=== PATIENT | female | born 1945 | race Caucasian/White ===

== ENCOUNTER 2023-02-09 07:33 | Outpatient (OUT) | payer MEDICARE, SELFPAY ==
--- NOTE | 2023-02-09 07:45 | NM_ITS ---
Patient: CODY TOBIAS Exam Date: 02/09/2023 : 1945 Gender:F Ordering : DR Christian Barrett . Admission #: [id number] Family : DR. LYNNE ANGELES . Order #: [id number] CLICK HERE TO VIEW EXAM RADIOLOGY REPORT PROCEDURE: NM CHARU PERF SPECT REST STR COMPARISON: None. INDICATIONS: Chest pain, dyspnea on exertion TECHNIQUE: Exam Description: Stress/Rest one day protocol gated SPECT Rest Imagin.7 mCi Tc-99m Cardiolite IV on 02/09/2023 Stress Imaging 31.0 mCi Tc-99m Cardiolite IV on 02/09/2023 Exercise Protocol: Rodney Heart Rate (bpm): Rest: 67 Max: 141 PMHR: 97 Blood Pressure: Rest: 128/62 Max: 152/64 Exercise Time: Minutes: 5 Seconds: 00 Stage Reached: Stage: 2 Mets 7.0 Symptoms: chest tightness, shortness of breath Rest and peak stress ECG findings were abnormal and the exercise portion of the study was abnormal per attending physician Dr. Angeles due toEKG changes. For more details please see separate cardiac stress test report. FINDINGS: QUALITY OF STUDY: Excellent. PERFUSION DEFECT: None. LOCATION: N/A SIZE: N/A. SEVERITY: N/A. TYPE: N/A. WALL MOTION: Normal. LV SIZE: Normal. 51 mL. TID / TCD: None; 0.8 LVEF: Normal. Calculated EF 82%. SUMMARY: Myocardial perfusion imaging study is NORMAL. CONCLUSION: 1. Normal nuclear medicine myocardial perfusion scan. Dictated by: Nash Samayoa M.D. on 02/09/2023 at 15:22 Approved by: Nash Samayoa M.D. on 02/09/2023 at 15:23
--- NOTE | 2023-02-09 12:38 | PM.STRESS ---
Stress Test Stress Test Requesting physician: Christian Barrett Procedure: Exercise Cardiolite stress test General Information: Reason for Stress Test: Chest pain, dyspnea Cardiac History and Risk Factors: Denies any cardiac history. Son had CABG x4. Resting 12 - Lead Electrocardiogram: Rate & rhythm: Normal sinus at a rate of 63. [place]: Normal T-waves: Flattened to very slightly inverted in aVL ST-segments: Normal orientation Stress Test: Protocol: Rodney protocol was followed, with injection of Cardiolite once target heart rate was achieved. Exercise capacity: Fair exercise capacity. Total exercise time of 5minutes reached Rodney stage 2 at 2.5MPH, 12% grade, & 7 METs. Blood pressure: Initial: 128/62, Maximum: 152/64, Recovery: 110/60 Rate & rhythm: Patient remained in sinus rhythm during the exercise and recovery portions of the study.? The maximum heart rate was 141, which was 97% of the maximum predicted heart rate 144. ST-segments & T-waves: Patient developed ST segment depression 1-2 minutes into the recovery phase (greatest at 2mm in V4 & v5) in the inferior and lateral leads. This progressed to ST segment downsloping in the same leads as well as lead I. 12 minutes into recovery, the abnormal EKG changes resolved and was similar to baseline. Patient response/symptoms: At the same time of the abnormal EKG changes, he developed substernal non-radiating chest pressure/heaviness 02/13. This resolved as her EKG changes returned to baseline. Interpretation: This is an abnormal exercise stress test based on inferolateral ST segment downsloping and 2mm depression changes during recovery.? The patient voiced chest heaviness/pressure which coincided with the aforementioned EKG changes. Cardiolite imaging interpretation will be reported separately. Clinical correlation required.?
== END 2023-02-09 07:34 | disposition home or self-care (01) ==
PROVIDERS: PCP Family Medicine; Visit Provider Family Medicine
DX: R07.9 Chest pain, unspecified (principal)
CPT/HCPCS: 78452; 93017; A9500

== ENCOUNTER 2023-02-15 09:59 | Outpatient (OUT) | payer MEDICARE, SELFPAY ==
[2023-02-15 08:15] LABS: Alanine Aminotransferase 19 U/L (14-59); Albumin Globulin Ratio 1.1; Albumin Level 3.5 g/dL (3.4-5.0); Alkaline Phosphatase 101 U/L (46-116); Anion Gap 13.4; Aspartate Amino Transferase 18 U/L (15-37); BUN Creatinine Ratio 17.3; Bilirubin Total 0.5 mg/dL (0.2-1.0); Calcium 8.6 mg/dL (8.5-10.1); Carbon Dioxide 23.7 mmol/L (21.0-32.0); Chloride 107 mmol/L (98-107); Chol HDL Ratio 2.1; Cholesterol 145 mg/dL (<=200); Estimated GFR (African America >60 (>=60); Estimated GFR (Non-African Ame >60 (>=60); Globulin 3.3 g/dL; Glucose 107 mg/dL (74-106); HDL Cholesterol 70 mg/dL (40-60); Potassium 4.1 mmol/L (3.5-5.1); Sodium 140 mmol/L (136-145); Total Protein 6.8 g/dL (6.4-8.2); Triglycerides 55 mg/dL (<=150)
[2023-02-15 08:37] LABS: Basophils Percent Auto 0.6 % (0.2-2.0); Eosinophils Absolute Auto 0.2 10^3/uL (0.0-0.7); Eosinophils Percent Auto 3.1 % (0.9-7.0); Immature Granulocytes Abs Auto 0.01 10^3/uL (0.00-0.03); Immature Granulocytes Pct Auto 0.2 % (0.0-0.5); Lymphocytes Absolute Auto 1.5 10^3/uL (1.2-3.8); Lymphocytes Percent Auto 27.2 % (20.5-60.0); Mean Corpuscular HGB Conc 27.7 g/dL (29.9-35.2); Mean Corpuscular Hemoglobin 18.2 pg (26.7-34.0); Mean Corpuscular Volume 65.8 fL (81.0-99.0); Mean Platelet Volume 9.6 fL (9.5-13.5); Monocytes Absolute Auto 0.4 10^3/uL (0.3-0.8); Monocytes Percent Auto 8.1 % (1.7-12.0); Neutrophils Absolute Auto 3.3 10^3/uL (1.4-6.5); Neutrophils Percent Auto 60.8 % (43.0-75.0); Platelet Count 373 10^3/uL (150-450); Red Blood Count 3.57 10^6/uL (4.20-5.40); White Blood Count 5.4 10^3/uL (4.0-11.0)
[2023-02-15 09:24] LABS: Hematocrit 23.5 % (36.0-48.0); Hemoglobin 6.5 g/dL (12.0-16.0)
== END 2023-02-15 23:59 | disposition home or self-care (01) ==
LOC: LAB 02-16 09:59
PROVIDERS: PCP Family Medicine
DX: R06.09 Other forms of dyspnea (principal); E78.2 Mixed hyperlipidemia
CPT/HCPCS: 36415; 80053; 80061; 83880; 85025

== ENCOUNTER 2024-01-17 10:01 | Outpatient (OUT) | payer MEDICARE, SELFPAY ==
--- NOTE | 2024-01-17 10:12 | MM_ITS ---
Patient Name: CODY TOBIAS MR#: [id number] : 1945 Exam Date: 01/17/2024 Ordering Doctor: DR MELECIO BACA . RADIOLOGY REPORT PROCEDURE: MM TOMOSYNTHESIS SCREENING BI COMPARISON: MG MAMM SCREEN 3D JONATHAN CAD, 12/14/2022. MG MAMM SCREEN 3D JONATHAN CAD, 12/16/2021. INDICATIONS: Screening Calculator Name NCI Breast Cancer Risk Assessment Tool 5 Year Breast Cancer Risk 2.30% Lifetime Breast Cancer Risk 4.50% Personal Breast Cancer No Personal Ovarian Cancer No Treatments None Family Cancers Sister with uterine cancer at age 60. LOCATION: [facility] [place] BREAST COMPOSITION: The breasts are heterogeneously dense,which may obscure small masses. FINDINGS: DIAGNOSTIC CATEGORY 2--BENIGN FINDING. NO CHANGE FROM COMPARISON. Scattered benign-appearing calcifications are present. Scattered benign-appearing lymph nodes are present. RIGHT BREAST: No significant suspicious finding. LEFT BREAST: No significant suspicious finding. RECOMMENDATIONS: ROUTINE MAMMOGRAM AND CLINICAL EVALUATION IN 12 MONTHS. PLEASE NOTE: A NORMAL MAMMOGRAM DOES NOT EXCLUDE THE POSSIBILITY OF BREAST CANCER. A CLINICALLY SUSPICIOUS PALPABLE LUMP SHOULD BE BIOPSIED. Dictated by: Goran Couch MD on 01/17/2024 at 11:24 Approved by: Goran Couch MD on 01/17/2024 at 11:26
== END 2024-01-17 10:02 | disposition home or self-care (01) ==
LOC: MAMMO 10:06
PROVIDERS: PCP Family Medicine; Visit Provider Family Medicine
DX: Z12.31 Encounter for screening mammogram for malignant neoplasm of breast (principal); Z80.8 Family history of malignant neoplasm of other organs or systems
CPT/HCPCS: 77063; 77067

== ENCOUNTER 2025-02-28 08:21 | Outpatient (OUT) | payer MEDICARE, SELFPAY ==
--- OUTSIDE RECORDS SUMMARY | 2025-02-28 08:24 | XMS_ITS | Encounter Summary ---
Author Organization [facility] Address [address] [place] [address] Care Team Providers Care Technical Training Manager Name Role Phone Christian Barrett MD Primary Care Provider [phone] Christian Barrett MD Primary Care Provider [phone] Christian Barrett MD Unavailable Encounter Details Date Type Department Care Team (Late Contact Info) Description 10/10/2023 Orders Only [facility] [address] [place] [address] Christian Barrett MD [address] [place] [address] Social History Tobacco Use Types Packs/Day Years Used Date Smoking Tobacco: Never Smokeless Tobacco: Never Alcohol Use Standard Drinks/Week Comments Never 0 (1 standard drink = 0.6 oz pure alcohol) caffeine intake: 1-2 cups per day Comments Unknown Sex and Gender Information Value Date Recorded Sex Assigned at Not on file Legal Sex Female 7:26 PM EDT Gender Identity Not on file Sexual Orientation Not on file documented as of this encounter Plan of Treatment Upcoming Encounters Date Type Department Care Team (Late Contact Info) Description 02/17/2026 11:00 AM EDT Office Visit [facility] [address] [place] [address] Christian Barrett MD [address] [place] [address] documented as of this encounter Procedures Procedure Name Priority Date/Time Associated Diagnosis Comments SCANNED LABS Routine 10/10/2023 1:48 PM EST SCANNED LABS Routine 10/10/2023 11:30 AM EST SCANNED LABS Routine 10/10/2023 11:15 AM EST documented in this encounter Results * SCANNED LABS (10/10/2023 1:48 PM EST) Christian Barrett MD LAB CHG PERFORMABLES Final Resul t * SCANNED LABS (10/10/2023 11:30 AM EST) Christian Barrett MD LAB CHG PERFORMABLES Final Resul t * SCANNED LABS (10/10/2023 11:15 AM EST) Christian Barrett MD LAB CHG PERFORMABLES Final Resul t documented in this encounter Visit Diagnoses Not on filedocumented in this encounter Care Teams Technical Training Manager Relationship Specialty Start Date End Date Christian Barrett MD PCP - General Family Medicine 02/22/23 11/13/23 Christian Barrett MD [address] [place] [address] PCP - General Family Medicine 11/14/23 Christian Barrett MD [address] [place] [phone] PCP - [facility] 10/06/23 07/06/66 documented as of this encounter
--- OUTSIDE RECORDS SUMMARY | 2025-02-28 08:24 | XMS_ITS | Encounter Summary ---
Author Organization [facility] Address [address] [place] [address] Care Team Providers Care Roving Hauler Name Role Phone Christian Barrett MD Primary Care Provider [phone] Christian Barrett MD Unavailable Encounter Details Date Type Department Care Team (Late Contact Info) Description 01/08/2024 Orders Only [facility] [address] [place] [address] Christian Barrett MD [address] [place] [address] Social History Tobacco Use Types Packs/Day Years Used Date Smoking Tobacco: Never Smokeless Tobacco: Never Alcohol Use Standard Drinks/Week Comments Never 0 (1 standard drink = 0.6 oz pure alcohol) caffeine intake: 1-2 cups per day PHQ-2 Answer Date Recorded Patient Health Questionnaire-2 Score 0 11/14/2023 Comments Unknown Sex and Gender Information Value Date Recorded Sex Assigned at Not on file Legal Sex Female 7:26 PM EDT Gender Identity Not on file Sexual Orientation Not on file documented as of this encounter Plan of Treatment Upcoming Encounters Date Type Department Care Team (Late Contact Info) Description 02/17/2026 11:00 AM EDT Office Visit [facility] [address] [place] [address] Christian Barrett MD [address] [place] [address] documented as of this encounter Procedures Procedure Name Priority Date/Time Associated Diagnosis Comments MISCELLANEOUS LAB TEST Routine 01/08/2024 2:33 PM EDT MISCELLANEOUS LAB TEST Routine 01/08/2024 12:10 PM EDT MISCELLANEOUS LAB TEST Routine 01/08/2024 12:09 PM EDT documented in this encounter Results * - Miscellaneous Test (01/08/2024 2:33 PM EDT) Christian Barrett MD LAB BLOOD ORDERABLES Final Resul t * - Miscellaneous Test (01/08/2024 12:10 PM EDT) Christian Barrett MD LAB BLOOD ORDERABLES Final Resul t * - Miscellaneous Test (01/08/2024 12:09 PM EDT) Christian Barrett MD LAB BLOOD ORDERABLES Final Resul t documented in this encounter Visit Diagnoses Not on filedocumented in this encounter Care Teams Roving Hauler Relationship Specialty Start Date End Date Christian Barrett MD [address] [place] [address] PCP - General Family Medicine 11/14/23 Christian Barrett MD [address] [place] [address] PCP - [facility] 10/06/23 07/06/66 documented as of this encounter
--- OUTSIDE RECORDS SUMMARY | 2025-02-28 08:24 | XMS_ITS | Encounter Summary ---
Author Organization [facility] Address [address] [place] [address] Care Team Providers Care [address] In Teller Name Role Phone Christian Barrett MD Primary Care Provider [phone] Christian Barrett MD Unavailable Encounter Details Date Type Department Care Team (Late Contact Info) Description 05/15/2024 Orders Only [facility] [address] [place] [phone] Christian Barrett MD [address] [place] [address] Social History Tobacco Use Types Packs/Day Years Used Date Smoking Tobacco: Never Smokeless Tobacco: Never Alcohol Use Standard Drinks/Week Comments Never 0 (1 standard drink = 0.6 oz pure alcohol) caffeine intake: 1-2 cups per day PHQ-2 Answer Date Recorded Patient Health Questionnaire-2 Score 1 02/06/2024 Comments Unknown Sex and Gender Information Value Date Recorded Sex Assigned at Not on file Legal Sex Female 7:26 PM EDT Gender Identity Not on file Sexual Orientation Not on file documented as of this encounter Plan of Treatment Upcoming Encounters Date Type Department Care Team (Late Contact Info) Description 02/17/2026 11:00 AM EDT Office Visit [facility] [address] [place] [address] Christian Barrett MD [address] [place] [address] documented as of this encounter Procedures Procedure Name Priority Date/Time Associated Diagnosis Comments MISCELLANEOUS LAB TEST Routine 05/13/2024 10:03 AM EDT documented in this encounter Results * - Miscellaneous Test (05/13/2024 10:03 AM EDT) Christian Barrett MD LAB BLOOD ORDERABLES Final Resul t documented in this encounter Visit Diagnoses Not on filedocumented in this encounter Additional Health Concerns Assessment Noted Time PHQ-9 Depression Total Score: 3 02/06/20 24 11:00 AM EDT documented as of this encounter Care Teams Drive In Teller Relationship Specialty Start Date End Date Christian Barrett MD [address] [place] [address] PCP - General Family Medicine 11/14/23 Christian Barrett MD [address] [place] [address] PCP - [facility] 10/06/23 07/06/66 documented as of this encounter
--- OUTSIDE RECORDS SUMMARY | 2025-02-28 08:24 | XMS_ITS | Encounter Summary ---
Author Organization [facility] Address [address] [place] [address] Phone Care Team Providers Care Monomer Purification Operator Name Role Phone Christian Barrett MD Primary Care Provider + Christian Barrett MD Primary Care Provider + Christian Barrett MD Primary Care Provider + Encounter Details Date Type Department Care Team (Late st Contact Info) Description 02/15/2023 Orders Only [facility] [address] [place] [address] Conversion, Onbase Social History Tobacco Use Types Packs/Day Years Used Date Smoking Tobacco: Never Assessed Comments Unknown Sex and Gender Information Value Date Recorded Sex Assigned at Not on file Legal Sex Female 10:57 AM EDT Gender Identity Not on file Sexual Orientation Not on file documented as of this encounter Plan of Treatment Scheduled Orders Name Type Priority Associated Diagnoses Orde r Schedule OUTSIDE LAB SCAN Lab Ordered: 02/15/2023 documented as of this encounter Visit Diagnoses Not on filedocumented in this encounter Care Teams Monomer Purification Operator Relationship Specialty Start Date End Date Christian Barrett MD PCP - General 02/20/23 Christian Barrett MD PCP - General 02/17/23 02/19/23 Christian Barrett MD PCP - General 02/16/23 02/16/23 documented as of this encounter
--- OUTSIDE RECORDS SUMMARY | 2025-02-28 08:24 | XMS_ITS | Encounter Summary ---
Author Organization [facility] Address [address] [place] [address] Care Team Providers Care Alining Inspector Name Role Phone Christian Barrett MD Primary Care Provider [phone] Christian Barrett MD Primary Care Provider [phone] Christian Barrett MD Unavailable Encounter Details Date Type Department Care Team (Late st Contact Info) Description 02/18/[address] [facility] [address] [address] Lino Prakash MD [address] [address] Social History Tobacco Use Types Packs/Day Years Used Date Smoking Tobacco: Never Assessed Comments Unknown Sex and Gender Information Value Date Recorded Sex Assigned at Not on file Legal Sex Female 7:26 PM EDT Gender Identity Not on file Sexual Orientation Not on file documented as of this encounter Plan of Treatment Upcoming Encounters Date Type Department Care Team (Late st Contact Info) Description 02/17/2026 11:00 AM EDT Office Visit [facility] [address] [place] [address] Christian Barrett MD [address] [place] [address] documented as of this encounter Visit Diagnoses Not on filedocumented in this encounter Care Teams Alining Inspector Relationship Specialty Start Date End Date Christian Barrett MD PCP - General Family Medicine 02/22/23 11/13/23 Christian Barrett MD [address] [place] [address] PCP - [facility] 11/14/23 Christian Barrett MD [address] [place] [address] PCP - [facility] 10/06/23 07/06/66 documented as of this encounter
--- OUTSIDE RECORDS SUMMARY | 2025-02-28 08:24 | XMS_ITS | Clinical Summary ---
Author Organization [facility] Address [id number] [address] [place] [address] Care Team Providers Care Z Os Mainframe Systems Programmer Name Role Phone Christian Barrett MD Primary Care Provider [phone] Allergies No known active allergies Medications atorvastatin (LIPITOR) 40 mg tablet Take 40 mg by mouth daily. Active omeprazole (PriLOSEC) 40 mg capsule Take 40 mg by mouth daily. Active Active Problems No known active problems Social History Tobacco Use Types Packs/Day Years Used Date Smoking Tobacco: Never Smokeless Tobacco: Never Alcohol Use Standard Drinks/Week Comments No 0 (1 standard drink = 0.6 oz pur e alcohol) Childcare Answer Date Recorded Childcare Unknown 01/16/2019 Employment Answer Date Recorded Employment Unknown 01/16/2019 Purpose - Life Answer Date Recorded Purpose and direction in life Unknown Comments No Sex and Gender Information Value Date Recorded Sex Assigned at Not on file Legal Sex Female 11:25 AM EDT Gender Identity Not on file Sexual Orientation Not on file Last Filed Vital Signs Vital Sign Reading Time Taken Comments Blood Pressure 108/69 11/16/2017 10:09 AM EDT Pulse 71 11/16/2017 10:09 AM EDT Temperature 36.5 C (97.7 F) 11/16/2017 8:43 AM EDT Respiratory Rate 2 11/16/2017 9:24 AM EDT Oxygen Saturation 93% 11/16/2017 10:09 AM EDT Inhaled Oxygen Concentration - - Weight 54.9 kg (121 lb) 11/16/2017 8:43 AM EDT Height 157.5 cm (5' 2.01 ) 11/16/2017 8:43 AM ED T Body Mass Index 22.13 11/16/2017 8:43 AM EDT Plan of Treatment Health Maintenance Due Date Last Done Comments Depression Screening 1957 Tobacco Screening 1957 DTaP,Tdap and Td Vaccines (1 - Tdap) 1965 Fall Risk Screening 2011 COVID-19 Vaccine (8 2023-2 5 season) 2024 04/24/2024, 05/02/2023, 05/20/2022, Additional history exists Influenza Vaccine 04/07/2025 04/24/2024, , 04/26/2022, Additional history exists Zoster (Shingles) Vaccine Completed 2020, 02/08/2021, 07/17/2015 Medical Devices Implanted Type Area Hand Roller Engraver Device Identifier Shelf Expiration Date Model / Serial / Lot Clement 4.75 - Sn/A - [id number] Implanted:Qty: 2 on 07/03/2017 by Blair Mustafa DO at [facility] [place] Right: Shoulder Ar[employer]rex 03/06/2019 [id number] / N/A / [id number] [place] [address] [place] [address] [employer] MEDICARE Care Teams Z [employer] Mainframe Systems Programmer Relationship Specialty Start Date End Date Christian Barrett MD PCP - General Family Medicine 06/08/20
--- OUTSIDE RECORDS SUMMARY | 2025-02-28 08:24 | XMS_ITS | Encounter Summary ---
Author Organization [facility] Address [address] [place] [address] Care Team Providers Care Employment Specialist/Program Manager Name Role Phone Christian Barrett MD Primary Care Provider [phone] Christian Barrett MD Primary Care Provider [phone] Christian Barrett MD Unavailable Encounter Details Date Type Department Care Team (Late st Contact Info) Description 03/13/2023 Abstract [facility] [address] [phone] Lion Prakash MD [address] [address] Social History Tobacco Use Types [...] 11:00 AM EDT Office Visit [facility] [address] [place] [address] Christian Barrett MD [address] [place] [phone] documented as of this encounter Visit Diagnoses Not on filedocumented in this encounter Care Teams Employment Specialist/Program Manager Relationship Specialty Start Date End Date Christian Barrett MD PCP - General Family Medicine 02/22/23 11/13/23 Christian Barrett MD [address] [place] [address] PCP - General Family Medicine 11/14/23 Christian Barrett MD [address] [place] [address] PCP - [facility] 10/06/23 07/06/66 documented as of this encounter
--- OUTSIDE RECORDS SUMMARY | 2025-02-28 08:24 | XMS_ITS | Encounter Summary ---
Author Organization [facility] Address [address] [place] [address] Care Team Providers Care Instrumental Teacher Name Role Phone Christian Barrett MD Primary Care Provider [phone] Christian Barrett MD Primary Care Provider [phone] Christian Barrett MD Unavailable Encounter Details Date Type Department Care Team (Late Contact Info) Description 08/01/2023 Orders Only [facility] [address] [place] [address] Christian Barrett MD [address] [place] [address] Social History Tobacco Use Types [...] [facility] [address] [place] [address] Christian Barrett MD [address] [place] [address] documented as of this encounter Procedures Procedure Name Priority Date/Time Associated Diagnosis Comments MISCELLANEOUS LAB TEST Routine 07/11/2023 2:46 PM EST documented in this encounter Results * - Miscellaneous Test (07/11/2023 2:46 PM EST) Christian Barrett MD LAB BLOOD ORDERABLES Final Resul t documented in this encounter Visit Diagnoses Not on filedocumented in this encounter Care Teams Instrumental Teacher Relationship Specialty Start Date End Date Christian Barrett MD PCP - General Family Medicine 02/22/23 11/13/23 Christian Barrett MD [address] [place] [address] PCP - General Family Medicine 11/14/23 Christian Barrett MD [address] [place] [address] PCP - [facility] 10/06/23 07/06/66 documented as of this encounter
--- OUTSIDE RECORDS SUMMARY | 2025-02-28 08:24 | XMS_ITS | Encounter Summary ---
Author Organization [facility] Address [address] [place] [address] Phone Care Team Providers Care Standpipe Tender Name Role Phone Christian Barrett MD Primary Care Provider + Encounter Details Date Type Department Care Team (Late st Contact Info) Description 03/08/2023 Orders Only [facility] [address] [place] [address] Conversion, Onbase Social History Tobacco Use Types [...] r Schedule OUTSIDE LAB SCAN Lab Ordered: 03/08/2023 documented as of this encounter Visit Diagnoses Not on filedocumented in this encounter Care Teams Standpipe Tender Relationship Specialty Start Date End Date Christian Barrett MD PCP - General 02/20/23 documented as of this encounter
--- OUTSIDE RECORDS SUMMARY | 2025-02-28 08:24 | XMS_ITS | Encounter Summary ---
Author Organization [facility] Address [address] [place] [address] Care Team Providers Care Facilities Maintenance Engineer Name Role Phone Christian Barrett MD Primary Care Provider [phone] Christian Barrett MD Primary Care Provider [phone] Christian Barrett MD Unavailable Encounter Details Date Type Department Care Team (Late st Contact Info) Description 03/16/2023 Abstract [facility] [address] [phone] Lion Prakash MD [address] [address] Social History Tobacco Use Types [...] Office Visit [facility] [address] [place] [address] Christian Barrett MD [address] [place] [address] documented as of this encounter Visit Diagnoses Not on filedocumented in this encounter Care Teams Facilities Maintenance Engineer Relationship Specialty Start Date End Date Christian Barrett MD PCP - General Family Medicine 02/22/23 11/13/23 Christian Barrett MD [address] [place] [address] PCP - General Family Medicine 11/14/23 Christian Barrett MD [address] [place] [address] PCP - [facility] 10/06/23 07/06/66 documented as of this encounter
--- OUTSIDE RECORDS SUMMARY | 2025-02-28 08:24 | XMS_ITS | Encounter Summary ---
Author Organization [facility] Address [address] [place] [address] Care Team Providers Care Network Security Officer Name Role Phone Christian Barrett MD Primary Care Provider [phone] Christian Barrett MD Primary Care Provider [phone] Christian Barrett MD Unavailable Encounter Details Date Type Department Care Team (Late st Contact Info) Description 03/20/2023 Abstract [facility] [address] [phone] Lion Prakash MD [address] [address] Social History Tobacco Use Types [...] Office Visit [facility] [address] [place] [address] Christian Barrett MD [address] [place] [address] documented as of this encounter Visit Diagnoses Not on filedocumented in this encounter Care Teams Network Security Officer Relationship Specialty Start Date End Date Christian Barrett MD PCP - General Family Medicine 02/22/23 11/13/23 Christian Barrett MD [address] [address] PCP - General Family Medicine 11/14/23 Christian Barrett MD [address] [address] PCP - [facility] 10/06/23 07/06/66 documented as of this encounter
--- OUTSIDE RECORDS SUMMARY | 2025-02-28 08:24 | XMS_ITS | Clinical Summary ---
Author Organization [facility] Address [address] [place] [address] Care Team Providers Care Reception Clerk Name Role Phone hCristian Barrett MD Primary Care Provider [phone] Christian Barrett MD Unavailable Allergies No known active allergies Medications triamcinolone (Kenalog) 0.5 % creamIndications:D ermatitis Apply topically 3 (three) times a day 60 g 1 02/07/20 24 Active atorvastatin (Lipitor) 40 MG tabletIndications: Hyperlipidemia, unspecified hyperlipidemia type Take 1 tablet (40 mg) by mouth 1 (one) time each day at the same time 100 tablet 3 07/08/20 24 025 Active pantoprazole (ProtoNix) 40 MG EC tabletIndications: Gastro-esophageal reflux disease without esophagitis Take 1 tablet (40 mg) by mouth in the morning. Take before meals. Do not crush, chew, or split. 90 tablet 3 02/11/20 25 Active pantoprazole (ProtoNix) 40 MG EC tablet Every morning 02/13/20 24 025 Discontin ued(Reord er) Active Problems Problem Noted Date Diagnosed Date Prediabetes 08/12/2024 Medicare annual wellness visit, subsequent 02/05 Assessment & Plan (02/10/2025 12:15 PM EDT): Reviewed labs. Discussed proper diet and regular aerobic exercise. Need aerobic exercise 5-6 days a week for 30 minutes at a time. Smaller portions and limit total calories. Tetanus every 10 years. Advised not to smoke. Assessment & Plan (02/06/2024 11:55 AM EDT): Reviewed labs. Discussed proper diet and regular aerobic exercise. Need aerobic exercise 5-6 days a week for 30 minutes at a time. Smaller portions and limit total calories. Tetanus every 10 years. Advised not to smoke. Malignant neoplasm of hepatic flexure 11/14/2023 Assessment & Plan (02/06/2024 11:54 AM EDT): Scheduled for endoscopy and follow with specialists. Carcinoma of transverse colon 11/14/2023 Assessment & Plan (08/08/2024 10:47 AM EST): Follow with oncology. Iron deficiency anemia due to chronic blood loss 11/14/2023 Fatigue 11/14/2023 Anemia 11/14/2023 DULCE (generalized anxiety disorder) 11/14/2023 Assessment & Plan (11/14/2023 2:15 PM EDT): Will trial low dose of vistaril Advised of side effects Fu in 4 weeks Dyslipidemia 07/26/2023 Encounter for long-term (current) use of medicat ions 07/26/2023 Malignant neoplasm of transverse colon Assessment & Plan (02/10/2025 12:16 PM EDT): Follow with specialists. Assessment & Plan (02/06/2024 11:54 AM EDT): Scheduled for endoscopy and follow with specialists. Assessment & Plan (07/26/2023 8:01 AM EST): Feels well and normal BM. Follow up with oncology. Complete tear of right rotator cuff 02/22/2023 Difficulty walking 02/22/2023 Gastro-esophageal reflux disease without esophag itis 02/22/2023 Assessment & Plan (08/08/2024 10:47 AM EST): Symptoms controlled with protonix and continue. Assessment & Plan (07/26/2023 8:00 AM EST): Not on medication and no symptoms. Continue to monitor. Resolved Problems Problem Noted Date Diagnosed Date Resolved Date Mass of colon 11/14/2023 02/06/2024 Iron deficiency 11/14/2023 02/06/2024 GI bleed 11/14/2023 02/06/2024 Dyspnea on exertion 11/14/2023 02/06/20 Rash and nonspecific skin eruption 11/14/2023 08/08/2024 Assessment & Plan (11/14/2023 2:14 PM EDT): Steroids, skin care Low dose of vistaril for this Fu in 3 -4 weeks Abnormal mammogram 02/22/2023 3 Hyperlipidemia 02/22/2023 08/08/2024 Abnormal cardiovascular stress test 02/14/2023 07/26/2023 Encounters Date Type Department Care Team Description 02/19/2025 Telephone [facility] [address] [place] [address] Christian Barrett MD 02/10/2025 11:30 AM EDT Office Visit [facility] [address] [place] [phone] Christian Barrett MD Medicare annual wellness visit, subsequent (Primary Dx); Gastro-esophageal reflux disease without esophagitis; Malignant neoplasm of transverse colon (HCC) 02/10/2025 Bamboo flowsheet [facility] [address] [place] [phone] Christian Barrett MD from Last 3 Months Immunizations Immunization Administration Dates Next Due Influenza, High Dose Seasona l, Preservative Free 05/03/2018,05/10/2017 Influenza, High-dose Seasona l, Quadrivalent, Preservative Free 05/02/2023,05/01/2021,04/09/2020 Influenza, Seasonal, Quadriv alent, Adjuvanted 04/26/2022 Influenza, injectable, MDCK, quadrivalent 2018 Influenza, injectable, quadr ivalent, preservative free 06/15/2016 Influenza, seasonal, injecta ble, preservative free 05/04/2015,05/13/2014 Moderna Bivalent Booster Vaccination 05/20/2022 Pneumococcal Conjugate PCV 13 06/15/2016 Pneumococcal Conjugate PCV 20 05/20/2022 Pneumococcal Polysaccharide PPSV23 05/30/2012 Zoster, Recombinant 04/09/2021,02/08/2021 Zoster, live 07/17/2015 Family History Medical History Relation Name Comments Stroke Mother Relation Name Status Comments Father Mother Other Spouse Alive Son Alive Social History Tobacco Use Types Packs/Day Years Used Date Smoking Tobacco: Never Smokeless Tobacco: Never Alcohol Use Standard Drinks/Week Comments Never 0 (1 standard drink = 0.6 oz pure alcohol) caffeine intake: 1-2 cups per day PHQ-2 Answer Date Recorded Patient Health Questionnaire-2 Score 1 02/10/2025 Comments Unknown Sex and Gender Information Value Date Recorded Sex Assigned at Not on file Legal Sex Female 7:26 PM EDT Gender Identity Not on file Sexual Orientation Not on file Last Filed Vital Signs Vital Sign Reading Time Taken Comments Blood Pressure 114/52 02/10/2025 11:58 AM EDT Pulse 66 02/10/2025 11:58 AM EDT Temperature 36.3 C (97.3 F) 02/10/2025 11:58 AM EDT Respiratory Rate 20 02/10/2025 11:58 AM EDT Oxygen Saturation 97% 02/10/2025 11:58 AM EDT Inhaled Oxygen Concentration - - Weight 47.6 kg (105 lb) 02/10/2025 11:58 AM EDT Height 157.5 cm (5' 2 ) 02/10/2025 11:58 AM EDT Body Mass Index 19.2 02/10/2025 11:58 AM EDT Plan of Treatment Upcoming Encounters Date Type Department Care Team (Late st Contact Info) Description 02/17/2026 11:00 AM EDT Office Visit [facility] [address] [place] [address] Christian Barrett MD [address] [place] [phone] Health Maintenance Due Date Last Done Comments Influenza Vaccine (#1) 2025 4, 05/02/2023, 04/26/2022, Additional history exists Medicare Annual Wellness (AWV) 02/10/2026 02/10/2025 Pneumococcal Vaccine: 65+ Years Completed 05/20/2022, 06/15/2016, 05/30/2012 Insurance [facility] Care Teams Reception Clerk Relationship Specialty Start Date End Date Christian Barrett MD [address] [place] [phone] PCP - General Family Medicine 11/14/23 Christian Barrett MD [address] [place] [address] PCP - [facility] 10/06/23 07/06/66
--- OUTSIDE RECORDS SUMMARY | 2025-02-28 08:24 | XMS_ITS | Clinical Summary ---
Author Organization [facility] Address [address] [place] [address] Phone Care Team Providers Care Lap Cutter Name Role Phone Christian Barrett MD Primary Care Provider + Social History Tobacco Use Types Packs/Day Years Used Date Smoking Tobacco: Never Assessed Comments Unknown Sex and Gender Information Value Date Recorded Sex Assigned at Not on file Legal Sex Female 10:57 AM EDT Gender Identity Not on file Sexual Orientation Not on file Plan of Treatment Health Maintenance Due Date Last Done Comments Bone Density Scan 1945 Lipid Panel 1945 Yearly Adult Physical 1945 Hepatitis C Screening 1964 DTaP/Tdap/Td Vaccines (1 - Tdap) 1968 Pneumococcal Vaccine (1 of 1 - PCV) 1996 Zoster Vaccines (1 of 2) 1996 RSV High Risk: (Elderly (60+ ) or Population) (1 - 1-dose 75+ series) 2021 COVID-19 Vaccine (1 - 2023-2 5 season) 2024 Influenza Vaccine (#1) 2025 HIB Vaccines Aged Out No longer eligi ble based on patient's age to complete this topic HPV Vaccines Aged Out No longer eligi ble based on patient's age to complete this topic Hepatitis A Vaccines Aged Out No long er eligible based on patient's age to complete this topic Hepatitis B Vaccines Aged Out No long er eligible based on patient's age to complete this topic IPV Vaccines Aged Out No longer eligi ble based on patient's age to complete this topic Meningococcal Vaccine Aged Out No cheli sri eligible based on patient's age to complete this topic Rotavirus Vaccines Aged Out No longer eligible based on patient's age to complete this topic Care Teams Lap Cutter Relationship Specialty Start Date End Date Christian Barrett MD PCP - General 02/20/23
--- OUTSIDE RECORDS SUMMARY | 2025-02-28 08:24 | XMS_ITS | Encounter Summary ---
Author Organization [facility] Address [address] [place] [address] Care Team Providers Care Supervisor In Circuit Testing Name Role Phone Christian Barrett MD Primary Care Provider [phone] Christian Barrett MD Unavailable Encounter Details Date Type Department Care Team (Late st Contact Info) Description 02/19/2025 Telephone [facility] [address] [phone] Christian Barrett MD [address] [phone] Social History Tobacco Use Types Packs/Day Years [...] on file documented as of this encounter Miscellaneous Notes * Telephone Encounter - Christian Barrett MD - 02/19/2025 11:41 AM EDT Order in chart, please fax. * Telephone Encounter - Maryjane Trejo - 02/19/2025 8:30 AM EDT Patient called and stated she received a notice from [facility] that it is time for her mammogram. Patientwould like an order sent to [facility]. an documented in this encounter Plan of Treatment Upcoming Encounters Date Type Department Care Team (Late st Contact Info) Description 02/17/2026 11:00 AM EDT [facility] [address] [place] [address] Christian Barrett MD [address] [place] [address] Scheduled Orders Name Type Priority Associated Diagnoses Orde r Schedule Bilateral screening mammogram Imaging Routine Breast cancer screening by mammogram Expected: 02/19/2025, Expires: 04/22/2026 documented as of this encounter Visit Diagnoses Diagnosis Breast cancer screening by mammogram- Primary documented in this encounter Additional Health Concerns Assessment Noted Time PHQ-9 Depression Total Score: 2 02/11/20 25 12:00 PM EDT documented as of this encounter Care Teams Supervisor In Circuit Testing Relationship Specialty Start Date End Date Christian Barrett MD [address] [place] [phone] PCP - General Family Medicine 11/14/23 Christian Barrett MD [address] [place] [phone] PCP - [facility] 10/06/23 07/06/66 documented as of this encounter
--- OUTSIDE RECORDS SUMMARY | 2025-02-28 08:24 | XMS_ITS | Encounter Summary ---
Author Organization [facility] Address [address] [place] [address] Care Team Providers Care Assistant Film Editor Name Role Phone Melecio Baca MD Primary Care Provider [phone] Melecio Baca MD Unavailable Encounter Details Date Type Department Care Team (Late st Contact Info) Description 01/17/2024 Clinisync Result Encounter [facility] External Department Unsolicited Melecio Baca MD [address] [place] [phone] Social History Tobacco Use Types Packs/Day Years [...] 02/17/2026 11:00 AM EDT [facility] [address] [place] [phone] Melecio Baca MD [address] [place] [phone] documented as of this encounter Procedures Procedure Name Priority Date/Time Associated Diagnosis Comments MM TOMOSYNTHESIS SCREENING BI 01/17/2024 11:26 AM EDT documented in this encounter Results * MM TOMOSYNTHESIS SCREENING BI (01/17/2024 11:26 AM EDT) Anatomical Region Laterality Modality Other 01/17/2024 11:2 6 AM EDT Narrative 01/17/2024 11:27 [place] [address] Mammography Report Signed Patient: CODY RICO MR#: [id number] : 1945 Acct:[id number] Age/Sex: 78 / F ADM Date: 01/17/24 Loc: MAMMO Attending Dr: Melecio Baca M.D. Ordering Physician: Melecio Baca M.D. Results: Date of Service: 01/17/24 Follow Up: Procedure(s): MM tomosynthesis screening BI Accession Number(s): [id number] cc: Melecio Baca M.D. Patient Name: CODY RICO MR#: [id number] : 1945 Exam Date: 01/17/2024 Ordering Doctor: DR MELECIO BACA . RADIOLOGY REPORT PROCEDURE: MM TOMOSYNTHESIS SCREENING BI COMPARISON: MG MAMM SCREEN 3D JONATHAN CAD, 12/14/2022. MG MAMM SCREEN 3D JONATHAN CAD, 12/16/2021. INDICATIONS: Screening Calculator Name NCI Breast Cancer Risk Assessment Tool 5 Year Breast Cancer Risk 2.30% Lifetime Breast Cancer Risk 4.50% Personal Breast Cancer No Personal Ovarian Cancer No Treatments None Family Cancers Sister with uterine cancer at age 60. LOCATION: [facility] BREAST COMPOSITION: The breasts are heterogeneously dense,which may obscure small masses. FINDINGS: DIAGNOSTIC CATEGORY 2--BENIGN FINDING. NO CHANGE FROM COMPARISON. Scattered benign-appearing calcifications are present. Scattered benign-appearing lymph nodes are present. RIGHT BREAST: No significant suspicious finding. LEFT BREAST: No significant suspicious finding. RECOMMENDATIONS: ROUTINE MAMMOGRAM AND CLINICAL EVALUATION IN 12 MONTHS. PLEASE NOTE: A NORMAL MAMMOGRAM DOES NOT EXCLUDE THE POSSIBILITY OF BREAST CANCER. A CLINICALLY SUSPICIOUS PALPABLE LUMP SHOULD BE BIOPSIED. Dictated by: Goran Couch MD on 01/17/2024 at 11:24 Approved by: Goran Couch MD on 01/17/2024 at 11:26 Dictated By: Goran Couch M.D. Signed By: 01/17/24 1127 DD/ 1126 TD/TT: Digital Intern: Procedure Note Radiology, Radiologist, MD - 01/17/2024 [place] [address] Mammography Report Signed Patient: CODY RICO LMR#: [id number] : 1945cct:[id number] Age/Sex: 78 / FADM Date: 01/17/24 Loc: MAMMO Attending Dr: Melecio Baca M.D. Ordering Physician: Melecio Baca M.D.Results: Date of Service: 01/17/24Follow Up: Procedure(s): MM tomosynthesis screening BI Accession Number(s): [id number] cc: Melecio Baca M.D. Patient Name: CODY RICO MR#: [id number] : 1945 Exam Date: 01/17/2024 Ordering Doctor: DR MELECIO BACA . RADIOLOGY REPORT PROCEDURE: MM TOMOSYNTHESIS SCREENING BI COMPARISON: MG MAMM SCREEN 3D JONATHAN CAD, 12/14/2022. MG MAMM SCREEN 3DBIL CAD, 12/16/2021. INDICATIONS: Screening Calculator Name NCI Breast Cancer Risk Assessment Tool 5 Year Breast Cancer Risk 2.30% Lifetime Breast Cancer Risk 4.50% Personal Breast Cancer No Personal Ovarian Cancer No Treatments None Family Cancers Sister with uterine cancer at age 60. LOCATION: [facility] BREAST COMPOSITION: The breasts are heterogeneously dense,which may obscure small masses. FINDINGS: DIAGNOSTIC CATEGORY 2--BENIGN FINDING. NO CHANGE FROM COMPARISON. Scattered benign-appearing calcifications are present. Scattered benign-appearing lymph nodes are present. RIGHT BREAST: No significant suspicious finding. LEFT BREAST: No significant suspicious finding. RECOMMENDATIONS: ROUTINE MAMMOGRAM AND CLINICAL EVALUATION IN 12 MONTHS. PLEASE NOTE: A NORMAL MAMMOGRAM DOES NOT EXCLUDE THE POSSIBILITY OFBREAST CANCER. A CLINICALLY SUSPICIOUS PALPABLE LUMP SHOULD BE BIOPSIED. Dictated by: Goran Couch MD on 01/17/2024 at 11:24 Approved by: Goran Couch MD on 01/17/2024 at 11:26 Dictated By: Goran Couch M.D. Signed By:01/17/24 1127 DD/ 1126 TD/TT: Digital Intern: Melecio Baca MD [facility] Final Result documented in this encounter Visit Diagnoses Not on filedocumented in this encounter Care Teams Assistant Film Editor Relationship Specialty Start Date End Date Melecio Baca MD [address] [place] [phone] PCP - General Family Medicine 11/14/23 Melecio Baca MD [address] [place] [phone] PCP - [facility] 10/06/23 07/06/66 documented as of this encounter
--- OUTSIDE RECORDS SUMMARY | 2025-02-28 08:24 | XMS_ITS | Clinical Summary ---
Author Organization [facility] Address [address] [place] [address] Care Team Providers Care Controls Operator Molded Goods Name Role Phone Christian Barrett MD Primary Care Provider [phone] Allergies No known active allergies Medications atorvastatin (Lipitor) 40 mg tablet Take 40 mg by mouth at bedtime. 11/24/2022 Active omeprazole (PriLOSEC) [address] capsule Take 20 mg by mouth in the morning. 11/24/2022 Active metoprolol succinate XL (Toprol-XL) 25 mg 24 hr tabletIndication s:Dyspnea on exertion Take 1 tablet (25 mg) by mouth once daily as directed. Do not crush or chew. 90 tablet 3 02/14/2023 Active Active Problems Problem Noted Date Diagnosed Date Abnormal cardiovascular stress test 02/14/2023 Family History Medical History Relation Name Comments CABG Son Coronary artery disease Son Relation Name Status Comments Son Other Social History Tobacco Use Types Packs/Day Years Used Date Smoking Tobacco: Never Smokeless Tobacco: Never Tobacco Cessation:Counseling Given: Not Answered Alcohol Use Standard Drinks/Week Comments Not Currently 0 (1 standard drink = 0.6 oz pur e alcohol) [place] Safety & Environment Answer Date Rec orded Fear of Current or Ex-Partner Not on file Emotionally Abused Not on file 09/29/2023 Physically Abused Not on file 09/29/2023 Sexually Abused Not on file 09/29/2023 Physically or Sexually Abused Not on file Comments Unknown Sex and Gender Information Value Date Recorded Sex Assigned at Not on file Legal Sex Female 4:07 PM EDT Gender Identity Not on file Sexual Orientation Not on file Last Filed Vital Signs Vital Sign Reading Time Taken Comments Blood Pressure 122/62 02/14/2023 3:04 PM EDT Pulse 81 02/14/2023 3:04 PM EDT Temperature - - Respiratory Rate - - Oxygen Saturation 99% 02/14/2023 3:04 PM EDT Inhaled Oxygen Concentration - - Weight 49 kg (108 lb) 02/14/2023 3:04 PM EDT Height 157.5 cm (5' 2 ) 02/14/2023 3:04 PM EDT Body Mass Index 19.75 02/14/2023 3:04 PM EDT Plan of Treatment Health Maintenance Due Date Last Done Comments Medicare Annual Wellness (AWV) 1945 Depression Screening 1958 Adult Tetanus 1968 Fall Risk Screening 2011 COVID-19 Vaccine ( season) 2024 05/10/2021, 10/03/2020, 09/05/2020 Influenza Vaccine (#1) 2025 2, 05/01/2021, 04/09/2020, Additional history exists Zoster Vaccines Completed 04/09/2021, 12/2020, 07/17/2015 Pneumococcal Vaccine: 50+ Years Completed 05/20/2022, 06/15/2016, 05/30/2012 HIB Vaccines Aged Out No longer eligi ble based on patient's age to complete this topic HPV Vaccines Aged Out No longer eligi ble based on patient's age to complete this topic IPV Vaccines Aged Out No longer eligi ble based on patient's age to complete this topic Meningococcal B Vaccine Aged Out No l onger eligible based on patient's age to complete this topic Meningococcal Vaccine Aged Out No cheli sir eligible based on patient's age to complete this topic Rotavirus Vaccines Aged Out No longer eligible based on patient's age to complete this topic Insurance MEDICARE AARP Care Teams Controls Operator Molded Goods Relationship Specialty Start Date End Date Christian Barrett MD [address] [place] [address] PCP - General 02/14/23
--- OUTSIDE RECORDS SUMMARY | 2025-02-28 08:24 | XMS_ITS | Encounter Summary ---
Author Organization [facility] Address [address] [place] [address] Phone Care Team Providers Care Freight Manager Name Role Phone Christian Barrett MD Primary Care Provider + Encounter Details Date Type Department Care Team (Late st Contact Info) Description 03/12/2023 Scanned Document [facility] [address] [place] [address] Conversion, Onbase Social History Tobacco Use Types Packs/Day Years Used Date Smoking Tobacco: Never Assessed Comments Unknown Sex and Gender Information Value Date Recorded Sex Assigned at Not on file Legal Sex Female 10:57 AM EDT Gender Identity Not on file Sexual Orientation Not on file documented as of this encounter Plan of Treatment Not on file documented as of this encounter Visit Diagnoses Not on filedocumented in this encounter Care Teams Freight Manager Relationship Specialty Start Date End Date Christian Barrett MD PCP - General 02/20/23 documented as of this encounter
--- NOTE | 2025-02-28 08:55 | MM_ITS ---
Patient Name: CODY TOBIAS MR#: [id number] : 1945 Exam Date: 02/28/2025 Ordering Doctor: DR MELECIO BACA . RADIOLOGY REPORT PROCEDURE: MM TOMOSYNTHESIS SCREENING BI COMPARISON: MM TOMOSYNTHESIS SCREENING BI, 01/17/2024. MG MAMM SCREEN 3D JONATHAN CAD, 12/14/2022. MG MAMM SCREEN 3D JONATHAN CAD, 12/16/2021. MG MAMM SCREEN JONATHAN W CAD, 11/07/2017. INDICATIONS: Screening Calculator Name NCI Breast Cancer Risk Assessment Tool 5 Year Breast Cancer Risk 2.30% Lifetime Breast Cancer Risk 4.10% Personal Breast Cancer No Personal Ovarian Cancer No Treatments None Family Cancers Sister with uterine cancer at age 60. LOCATION: [facility] BREAST COMPOSITION: The breasts are heterogeneously dense, which may obscure small masses. FINDINGS: RIGHT BREAST: No significant suspicious finding. LEFT BREAST: No significant suspicious finding. DIAGNOSTIC CATEGORY 1--NEGATIVE. RECOMMENDATIONS: ROUTINE MAMMOGRAM AND CLINICAL EVALUATION IN 12 MONTHS. PLEASE NOTE: A NORMAL MAMMOGRAM DOES NOT EXCLUDE THE POSSIBILITY OF BREAST CANCER. A CLINICALLY SUSPICIOUS PALPABLE LUMP SHOULD BE BIOPSIED. Dictated by: Papa Mason MD on 02/28/2025 at 14:15 Approved by: Papa Mason MD on 02/28/2025 at 14:33
== END 2025-02-28 08:22 | disposition home or self-care (01) ==
LOC: MAMMO 08:21
PROVIDERS: PCP Family Medicine; Visit Provider Family Medicine
DX: Z12.31 Encounter for screening mammogram for malignant neoplasm of breast (principal); Z80.8 Family history of malignant neoplasm of other organs or systems
CPT/HCPCS: 77063; 77067